=== PATIENT | female | born 1940 | race Caucasian/White ===

== ENCOUNTER → 2024-10-07 13:42 | Outpatient (REF) | payer MEDICARE, OTHER, SELFPAY | LOC: HWWDC 13:42 | PROVIDERS: ATTENDING PHYSICIAN Internal Medicine; REFERRING PHYSICIAN Obstetrics & Gynecology | DX: Z12.31 Encounter for screening mammogram for malignant neoplasm of breast (principal) | CPT/HCPCS: 77063; 77067 ==

== ENCOUNTER → 2024-11-04 08:01 | Outpatient (REF) | payer MEDICARE, OTHER, SELFPAY | LOC: RCS 08:01 | PROVIDERS: ATTENDING PHYSICIAN Nurse Practitioner; FAMILY PHYSICIAN Internal Medicine | DX: R60.0 Localized edema (principal); I34.0 Nonrheumatic mitral (valve) insufficiency | CPT/HCPCS: 93306 ==

== ENCOUNTER 2025-05-26 22:07 | Emergency (ER) | payer MEDICARE, OTHER, SELFPAY ==
[2025-05-26 22:08] VITALS: BP 181/65
[2025-05-26 22:55] VITALS: BP 118/78
[2025-05-26 23:01] VITALS: BP 140/49
[2025-05-26] MEDS: MORPHINE SULFATE 4 MG IV (23:22)
[2025-05-26] MEDS: NSS 1000 IV (23:25)
[2025-05-26 23:37] LABS: Hematocrit 37.5 % (37.0-47.0); Hemoglobin 12.5 g/dL (12.0-16.0); Mean Corp Hgb Conc. 33.3 g/dL (33.0-37.0); Mean Corpuscular Volume 92.6 fL (81.0-99.0); Nucleated Red Blood Cells % 0 %; Platelet Count 232 10^3/uL (130-400); Red Cell Dist. Width 15.1 % (11.5-14.5)
[2025-05-26] MEDS: OMNIPAQUE 50 ML PO (23:38)
[2025-05-26 23:59] LABS: ALT (SGPT) 21 U/L (0-35); AST (SGOT) 25 U/L (14-36); Albumin 4.5 g/dl (3.5-5.0); Alkaline Phosphatase 90 U/L (38-126); Blood Urea Nitrogen 25 mg/dl (7-17); Calcium 9.7 mg/dl (8.4-10.2); Carbon Dioxide 20 mmol/L (22-30); Chloride 109 mmol/L (98-107); Glucose 188 mg/dl (70-99); Lipase 205 U/L (23-300); Potassium 3.8 mmol/L (3.5-5.1); Sodium 143 mmol/L (135-145); Total Protein 7.3 g/dl (6.3-8.2); eGFR > 60.00
[2025-05-27] VITALS: BP 125/85
--- NOTE | 2025-05-27 00:05 | ED.GENMED ---
History of Present Illness
General
Chief Complaint: Abdominal Symptoms
Time Seen by Provider: 05/26/25 22:49
History of Present Illness
History of Present Illness:
84-year-old female with history of CAD status post CABG, hypertension, hyperlipidemia presenting to the emergency department for left lower quadrant abdominal pain. Patient reports pain for the past 3 days. Notes that pain has been essentially
intermittent for the past 5 years, of unclear etiology, however worsened in the past 3 days. She feels that there is a 'lump 'in the left lower quadrant. Notes nausea without vomiting. Denies changes in stool. Reports prior surgical history of
hysterectomy. Denies fever. Denies chest pain or difficulty breathing or additional acute medical complaints
Phy Exam
Physical Exam
Physical Exam:
General: Well-appearing, no clinical signs of dehydration, nontoxic and in no acute distress
HEENT: protecting airway
Neck: appears supple
CV: Normal heart rate, regular rhythm
Resp: No accessory muscle use, no increased work of breathing
Abd: Soft and non-distended, without palpation of obvious hernia. Diffuse reproducible tenderness to the left lower quadrant without rebound or guarding
Extremities: No deformities, no swelling
Neuro: alert, no focal neurologic deficit
: deferred
Rectal: deferred
Psych: Normal affect
Skin: Intact
Course
Orders/Labs/Results
Orders:
Orders
05/26/25 23:00
Urinalysis Reflex To Culture Urgent
Date Specimen was Collected: 05/27/25
Time Specimen was Collected: 01:27
0.9% Sodium Chloride 1000 ml [Nss] 1,000 ml IV BOLUS
Iohexol [Omnipaque] See Protocol PO NOW STA
Morphine Sulfate 4 mg IV NOW STA
05/26/25 23:27
Complete Blood Count/With Diff Urgent
Comprehensive Metabolic Panel Urgent
Lactic Acid Urgent
Lipase Urgent
05/27/25 00:34
Ondansetron Injectable [Zofran] 4 mg .ROUTE .STK-MED ONE
05/27/25 00:35
Ondansetron Injectable [Zofran] 4 mg IV NOW STA
05/27/25 01:40
CT Abd/pel W Iv And Oral Contr Urgent
Reason For Exam: LLQ abd pain, hernia vs diverticulitis
Abnormal Lab Results
05/26/25
23:27
WBC 16.5 H 10^3/uL
(4.8-10.8)
RBC 4.05 L 10^6/uL
(4.20-5.40)
RDW 15.1 H %
(11.5-14.5)
Abs Immat Gran (auto) 0.1 H 10^3/uL
(0-0.05)
Absolute Neuts (auto) 13.9 H 10^3/uL
(1.4-6.5)
Absolute Monos (auto) 0.8 H 10^3/uL
(0.1-0.6)
Immature Gran % 0.6 H %
(0-0.5)
Neutrophils % 84.1 H %
(42.2-75.2)
Lymphocytes % 9.8 L %
(20.5-51.1)
Chloride 109 H mmol/L
(98-107)
Carbon Dioxide 20 L mmol/L
(22-30)
BUN 25 H mg/dl
(7-17)
Glucose 188 H mg/dl
(70-99)
05/26/25 23:27
05/26/25 23:27
Vital Signs
Initial and Last Documented VS:
Initial Vital Signs
Temp Pulse Resp BP Pulse Ox
97.1 F 55 20 181/65 99
05/26/25 22:08 05/26/25 22:08 05/26/25 22:08 05/26/25 22:08 05/26/25 22:08
Last Documented Vital Signs
Temp Pulse Resp BP Pulse Ox
97.1 F 55 20 125/85 99
05/26/25 22:08 05/26/25 22:08 05/26/25 22:08 05/27/25 00:00 05/27/25 00:30
MDM/Problems Addressed
MDM/Problems Addressed:
84-year-old female with history of CAD status post CABG, hypertension, hyperlipidemia, presenting for 3 days of left lower quadrant abdominal pain. Vital signs significant for hypertension, however patient does appear uncomfortable on exam.
On physical exam, patient is in no acute distress, however again does have discomfort secondary to pain. Differential considerations include hernia versus diverticulitis versus bowel obstruction. For this reason we will obtain laboratory analysis
and CT abdominal imaging for further assessment. Morphine and fluids administered for patient's symptoms.
03:00 -patient's labs show leukocytosis, however normal lactic acid. CT shows that there is a spigelian or incisional hernia in the left lower quadrant containing small loops of bowel, mild fluid within the hernia sac but no wall thickening or
concern for obstruction. Incidental findings of CBD dilatation, however no focal right upper quadrant abdominal pain. There is also some wall thickness to the colon, possible mild enterocolitis. On reassessment patient notes that her pain is
gone. At this time suspect that patient's pain is ultimately from her hernia, notes that she has had pain on and off for 5 years. No present concern for bowel ischemia or acute obstruction. No emergent need for hernia repair, however due to
waxing waning symptoms, did recommend that patient follow-up with his surgeon for elective repair. Patient in agreement with plan. Return precautions discussed and patient verbalized understanding
*Pulse Oximetry
SaO2: 99
Oxygen Mode of Delivery: Room air
Patient hypoxic: no
*Critical Care Note
Total Time (30-74mins, 75-104mins- exclusive of procedures): Not Applicable
ED Attending Note
-
Portions of this chart may have been created with voice recognition software.� Occasional wrong word or��sound alike� substitutions may have occurred due to the inherent limitations of voice recognition software.
Discharge Plan
Departure
Prescriptions:
No Action
losartan [Cozaar] 100 MG tablet
100 mg PO DAILY
multivitamin [Daily Multiple] 1 EACH tablet
1 ea PO DAILY
atorvastatin 40 MG tablet
40 mg PO DAILY
isosorbide mononitrate 30 MG tablet extended release 24 hr
30 mg PO DAILY
sennosides-docusate sodium [Stool Softener-Laxative] 1 EACH tablet
1 ea PO DAILY
aspirin [Adult Aspirin Regimen] 81 MG tablet,delayed release (DR/EC)
81 mg PO DAILY
levothyroxine 50 MCG tablet
50 mcg PO DAILY
sertraline 25 MG tablet
25 mg PO DAILY
hydrochlorothiazide 25 MG tablet
25 mg PO DAILY
metoprolol succinate 25 MG tablet extended release 24 hr
25 mg PO DAILY
docosahexaenoic acid-epa 1 CAP capsule
1 cap PO DAILY
loratadine 10 MG tablet
10 mg PO DAILY
clopidogrel 75 MG tablet
75 mg PO DAILY Qty: 90 3RF
Referrals:
Tao Melgar, [Family Provider, Internal Medicine]
Interventions
Interventions:
*General Assessment Last Done: 05/26/25 22:08
*ED- Fall Risk Assessment Last Done: 05/27/25 00:43
*ED COVID-19 Vaccine History Last Done: 05/27/25 00:43
*ED Influenza Vaccine History Last Done: 05/27/25 00:43
FW-Ygcedt-Brrowayyka Assessment Last Done: 05/27/25 00:00
Discharge Date and Time
Print Language: LATVIAN
[2025-05-27] MEDS: ZOFRAN 4 MG IV (00:35)
[2025-05-27 01:00] VITALS: BP 135/59
[2025-05-27 02:01] VITALS: BP 118/100
[2025-05-27 03:00] VITALS: BP 126/57
[2025-05-27 03:53] VITALS: BP 126/57
== END 2025-05-27 03:55 | disposition home or self-care (01) ==
LOC: EMR 22:07
PROVIDERS: EMERGENCY PHYSICIAN Student in an Organized Health Care Education/Training Program; FAMILY PHYSICIAN Internal Medicine
DX: K43.9 Ventral hernia without obstruction or gangrene (principal); D72.829 Elevated white blood cell count, unspecified; K83.8 Other specified diseases of biliary tract; I25.810 Atherosclerosis of coronary artery bypass graft(s) without angina pectoris; I10 Essential (primary) hypertension; E78.5 Hyperlipidemia, unspecified; Z79.82 Long term (current) use of aspirin; Z79.02 Long term (current) use of antithrombotics/antiplatelets; Z95.1 Presence of aortocoronary bypass graft
CPT/HCPCS: 99284; 96374; 96375; 96361; 74177; 80053; 83605; 83690; 85025; Q9967

== ENCOUNTER → 2025-07-14 08:18 | Outpatient (REF) | payer MEDICARE, OTHER, SELFPAY ==
[2025-07-14 10:07] LABS: Hematocrit 41.7 % (37.0-47.0); Hemoglobin 13.6 g/dL (12.0-16.0); Mean Corp Hgb Conc. 32.6 g/dL (33.0-37.0); Mean Corpuscular Volume 96.1 fL (81.0-99.0); Nucleated Red Blood Cells % 0 %; Platelet Count 293 10^3/uL (130-400); Red Cell Dist. Width 14.7 % (11.5-14.5)
[2025-07-14 10:54] LABS: Microalb - Urine Creatinine 81.400 mg/dl
[2025-07-14 11:10] LABS: Microalbumin, Random Urine <0.6 mg/dl (0.6-1.7)
[2025-07-14 11:38] LABS: Glycohemoglobin (HgbA1c) 6.3 % (4.0-5.9)
== END ==
LOC: HWLAB 08:18
PROVIDERS: ATTENDING PHYSICIAN Student in an Organized Health Care Education/Training Program
DX: I10 Essential (primary) hypertension (principal); E78.49 Other hyperlipidemia; E11.9 Type 2 diabetes mellitus without complications
CPT/HCPCS: 36415; 82043; 82570; 83036; 84439; 84443; 85025

== ENCOUNTER → 2025-07-17 06:18 | Outpatient (REF) | payer MEDICARE, OTHER, SELFPAY ==
[2025-07-17 08:53] LABS: ALT (SGPT) 34 U/L (0-35); AST (SGOT) 31 U/L (14-36); Albumin 4.1 g/dl (3.5-5.0); Alkaline Phosphatase 97 U/L (38-126); Blood Urea Nitrogen 27 mg/dl (7-17); Calcium 9.4 mg/dl (8.4-10.2); Carbon Dioxide 27 mmol/L (22-30); Chloride 106 mmol/L (98-107); Glucose 100 mg/dl (70-99); HDL Cholesterol 69 mg/dl; LDL Cholesterol, Calculated 26 mg/dl; Potassium 4.3 mmol/L (3.5-5.1); Sodium 137 mmol/L (135-145); Total Protein 7.0 g/dl (6.3-8.2); Very Low Density Lipoprotein 11 mg/dl (0-30); eGFR 55.21
== END ==
LOC: REG 06:18
PROVIDERS: ATTENDING PHYSICIAN Student in an Organized Health Care Education/Training Program
DX: I10 Essential (primary) hypertension (principal); E78.49 Other hyperlipidemia; E11.9 Type 2 diabetes mellitus without complications
CPT/HCPCS: 36415; 80053; 80061

== ENCOUNTER 2025-08-08 06:47 | Day surgery (SDC) | payer MEDICARE, OTHER, SELFPAY ==
[2025-08-08] VITALS (9 sets, daily range): BP systolic 104–151; BP diastolic 53–63; BMI 24.8
--- NOTE | 2025-08-08 09:57 | W.SUR.PREOP ---
Pre-Operative Surgical Note
-
I have examined this patient prior to the performance of the scheduled procedure.
The patient's condition is unchanged from the time of the current History and
Physical and the patient is able to undergo the scheduled procedure.
--- NOTE | 2025-08-08 09:57 | HP.FOC2 ---
Focused History & Physical
Chief Complaint
HPI:
Chief Complaint: Left inguinal hernia
HPI / Indication for Planned Procedure: This is an 84-year-old female who presents with a symptomatic left inguinal hernia. Will plan for a robotic left inguinal hernia repair with mesh.
Relevant Past Medical History: Negative
Relevant Social History: Negative
Relevant Family History: Negative
Relevant Past Surgical History: Positive for (Hysterectomy)
Review of Systems
Review of Pertinent Systems: All Systems Negative
Medication
See Medication form for detailed medications: Yes
Medication List (including Herbals & OTC):
aspirin 81 mg tablet,delayed release (Adult Aspirin Regimen) 81 mg PO DAILY 07/09/18
atorvastatin 40 mg tablet 40 mg PO DAILY 07/09/18
clopidogrel 75 mg tablet 75 mg PO DAILY #90 tabs 07/09/18. Patient confirms that this was stopped 5 days ago.
docosahexaenoic acid (dha)-epa 120 mg-180 mg capsule 1 cap PO DAILY 07/09/18
isosorbide mononitrate 30 mg tablet,extended release 24 hr 30 mg PO DAILY 07/09/18
levothyroxine 50 mcg tablet 50 mcg PO DAILY 07/09/18
losartan 100 mg tablet (Cozaar) 100 mg PO DAILY 07/09/18
metoprolol succinate 25 mg tablet,extended release 24 hr 25 mg PO QPM 07/09/18
sertraline 25 mg tablet 25 mg PO DAILY 07/09/18
albuterol sulfate 90 mcg/actuation aerosol inhaler 2 puff inhalation PRN PRN SOB, Wheezes 08/07/25
amlodipine 5 mg tablet 5 mg PO HS 08/07/25
ascorbic acid (vitamin C) 1,000 mg tablet (Vitamin C) 1,000 mg PO DAILY 08/07/25
cholecalciferol (vitamin D3) 50 mcg (2,000 unit) capsule (Vitamin D3) 50 mcg PO DAILY 08/07/25
furosemide 20 mg tablet 20 mg PO DAILY 08/07/25
levocetirizine 5 mg tablet (Xyzal) 5 mg PO DAILY 08/07/25
zoufdoqdpkmz-yjtmwyiu-kskvzq tablet 1 tab PO DAILY 08/07/25
Medications Reviewed: Yes
Allergies and Reactions
Patient has Allergies: Yes
Noted Allergies and Reactions:
Allergy/AdvReac Type Severity Reaction Status Date / Time
erythromycin base (From Allergy upset Verified 08/08/25 09:52
Erythrocin) stomach,
diarrhea
levofloxacin Allergy muscle Verified 08/08/25 09:52
aches
/pains
Pertinent Physical Exam
All Other Systems: Negative
Head/Neck: Normal
Diagnosis / Assessment
This is an 84-year-old female who presents with a symptomatic left inguinal hernia.
Plan / Procedure
Will plan for a robotic left inguinal hernia repair with mesh.
Anesthesia/Sedation to be done by Anesthesia Provider: Yes
[2025-08-08] MEDS: TYLENOL 1000 MG PO (09:59)
[2025-08-08] MEDS: NORMOSOL-R/PLASMALYTE-A 1000 IV (10:03)
--- NOTE | 2025-08-08 11:38 | W.IMMPOSTOP ---
Surgical Immed Post Op Note
-
Primary Surgeon: Jai Fox MD
Assisting Surgeon: None
Pre-op Diagnosis: Left inguinal hernia
Post-op Diagnosis: Same
Procedure Performed: Robotic left inguinal hernia repair with mesh
Anesthesia Type: General
Specimen / Cultures: None
Estimated Blood Loss: 3 cc
Complications: None
Operative Findings: Large indirect inguinal hernia. After achieving the critical view of the MPO, the space was reinforced with a large left Bard 3D max uncoated polypropylene mesh.
--- NOTE | 2025-08-08 11:39 | OR.RPT ---
Operative Report
Operative Report
Patient Name: Matilde Rivera
: 1940
Date of Operation: 08/08/2025
Preoperative Diagnosis: Reducible Inguinal hernia, left
Postoperative Diagnosis: Same
Procedure(s):
1. Robotic Inguinal Hernia Repair with mesh, left (ERASTO approach)
Surgeon(s):
Dr. Fox
Upholstery Trimmer(s):
THOMAS Swain
Anesthesia: General
Estimated Blood Loss: 3 cc
Urine Output: None
Drains/Lines/Implants: Large 3D Max Bard mid weight uncoated polypropylene mesh
Specimens: None
Indication for surgery: The patient has a history of groin pain and noted on exam to have a Left inguinal Hernia. Following review of therapeutic options they have elected to undergo a minimally invasive repair.
Operative Findings: Large indirect inguinal hernia. After achieving the critical view of the MPO, the space was reinforced with a large left Bard 3D max uncoated polypropylene mesh.
Details of the operation:
The patient was brought to the Operating Room and placed in the supine position with the arms tucked. IV antibiotics were infused and Venodyne stockings placed. Following uneventful induction of general endotracheal anesthesia, an orogastric tube
was placed. The abdomen was prepped and draped in the usual sterile fashion. The abdomen was entered using a Veress technique which required 1 pass, pneumoperitoneum to 15 mmHg was obtained without difficulty. An 8mm trochar was passed through the
abdominal wall roughly 20 cm cephalad to the inguinal canal. We then confirmed that no inadvertent injury was made while passing the trocar or Veress needle. We then placed two additional 8 mm ports in the left upper and right upper quadrants. We
then docked the robot with a Prograsper in the left hand port and monopolar scissors in the right. A left indirect inguinal hernia was readily apparent. There was no defect on the right side. We then began by creating a flap at the level of the
ASIS laterally working our way medially to the medial umbilical fold. Staying onto the peritoneum we were able to circumferentially dissect around the hernia sac and and peel it off of the underlying round ligament, taking care to preserve it.
Medially we identified the midline pubis as well as Anmol's ligament and ensured to dissect 2 cm below the pubic rim over the bladder. After exposure of the entire myopectineal orifice we identified and reduced: A large indirect inguinal hernia
along with some preperitoneal fat adjacent to it. There was no direct or femoral component. There was no cord lipoma.
We then fixated a large 3D max mesh with a 2-0 Vicryl stitch at coopers medially and superior laterally. The flap was then closed with a running 2-0 barbed monocryl suture ensuring that the tail was cut flush with the medial fat pad so that no
barbs were exposed. During the closure of the flap an Angiocath was inserted and 20 cc of quarter percent Marcaine was instilled. The area in the flap cavity was then evacuated of air confirming that the mesh was flush and there were no folds. A
small rent in the peritoneum was noted and closed with 2-0 Vicryl. All needles and instruments were then removed and the robot was undocked. The abdomen was then desufflated, and pneumoperitoneum evacuated. All skin sites were then closed with 4-0
Monocryl followed by Dermabond. Counts were correct and overall, the patient tolerated the procedure well and was taken to the Recovery Room postoperatively in stable condition.
I was the attending physician and performed the procedure with assistance of the PA above. Their assistance was required due to the complexity of the procedure. During the procedure they assisted with port placement, instrument and needle
exchanges, and closure of the wound. I was present for all portions of the case, excluding skin closure.
Jai Fox MD
[2025-08-08] MEDS: DILAUDID 0.25 MG IV ×2 (12:00→12:12)
== END 2025-08-08 13:50 | disposition home or self-care (01) ==
LOC: SDS 06:47
PROVIDERS: ATTENDING PHYSICIAN Surgery
DX: K40.90 Unilateral inguinal hernia, without obstruction or gangrene, not specified as recurrent (principal)
CPT/HCPCS: 49650; C1781

== ENCOUNTER → 2025-08-11 12:03 | Outpatient (REF) | payer MEDICARE, OTHER, SELFPAY | LOC: RAD 12:03 | PROVIDERS: ATTENDING PHYSICIAN Student in an Organized Health Care Education/Training Program; FAMILY PHYSICIAN Student in an Organized Health Care Education/Training Program | DX: J15.9 Unspecified bacterial pneumonia (principal) | CPT/HCPCS: 71046 ==